=== PATIENT | female | born 1970 | race Caucasian/White ===

== ENCOUNTER 2016-09-02 10:34 | Emergency (ER) | payer OTHER ==
[~2016-09-02 10:34] MED LIST: ALEVE220 M1 PO; ATIVAN2 MG/1 ML IV; ATIVAN2 MG/1 ML PEG; BACITRACIN28.4 G2 AP; BACITRACIN28.4 G2 APL; DEXMEDETOMIDINE IV; DULCOLAX10 MG PR; FERROUS SU220 MG/54 PEG; IPRAT-ALBUT 0.5-3 ML AERO NEB; LEXAPRO10 M2 PEG; NEURONTIN300 MG PO; NEXIUM40 MG PO; NO HOME MEDICATION XX; NORCO 5-325 TA1 EACH PEG; OMEPRAZOLE20 M4 PO; PENICILLIN V P500 M1 PO; PROTONIX40 M2 PO; SEROQUEL25 M2 PEG; SEROQUEL50 M1 PEG; TYLENOL325 M2 PEG; TYLENOL325 M2 PO; VITAMIN D250000 UNI1 PO; ZANTAC150 MG PO; ZOFRAN ODT4 MG PO; ZOFRAN ODT4 MG/UDTAB PO; ZOFRAN4 M2 PO; ZOFRAN4 MG PO
[2016-09-02] MEDS ORDERED: NEURONTIN400 M1 PO (10:56)
[2016-09-02] MEDS ORDERED: CYMBALTA60 M1 PO (11:09)
[2016-09-02 12:14] LABS: BASO % 0.5 % (0-2); EOS % 0.7 % (0-7); EOSINOPHIL ABSOLUTE COUNT 0.1 tho/cmm (0.0-0.7); HCT-HEMATOCRIT 40.7 % (34.0-49.0); HGB-HEMOGLOBIN 13.1 gm/dl (12.0-15.5); IMMATURE GRANULOCYTES ABSOLUTE 0.02 tho/cmm (0-0.03); IMMATURE GRANULOCYTES PERCENT 0.2 % (0-0.3); LYMPH % 14.6 % (20-45); LYMPH ABSOLUTE COUNT 1.2 tho/cmm (0.8-4.5); MCH (MEAN CORPUSCULAR HGB) 32.8 pg (28.0-32.0); MCHC MEAN CORPUSCULAR HGB CONC 32.2 % (32.0-36.0); MCV (MEAN CELL VOLUME) 101.8 fl (82.0-96.0); MEAN PLATELET VOLUME 9.2 cmc (9.4-12.4); MONOCYTE ABSOLUTE COUNT 0.7 tho/cmm (0.0-1.2); NEUTROPHIL ABSOLUTE COUNT 6.3 tho/cmm (1.6-8.0); NEUTROPHIL-AUTOMATED 6.3 tho/cmm (1.6-8.0); PLATELET COUNT 225 tho/cmm (150-450); RED CELL DISTRIBUTION WIDTH 14.6 % (12.4-16.4); WHITE BLOOD COUNT 8.4 tho/cmm (4.0-10.0)
[2016-09-02 12:22] LABS: ANION GAP 11 mmol/L (0-20); BLOOD UREA NITROGEN 11 mg/dl (6-24); CALCIUM 8.9 mg/dl (8.5-10.5); CARBON DIOXIDE-VENOUS 30 mmol/L (22-32); CHLORIDE 102 mmol/l (96-110); CREATININE 0.68 mg/dl (0.50-1.10); GLUCOSE 98 mg/dL (70-110); POTASSIUM 4.3 mmol/L (3.7-5.1); SODIUM 139 mmol/L (135-145); eGFR VALUE FOR BLACK >90 mL/Min
== END 2016-09-02 15:04 ==
LOC: EDMED 10:34
PROVIDERS: Emergency Medicine
DX: R09.89 Other specified symptoms and signs involving the circulatory and respiratory systems (principal)